=== PATIENT | female | born 1955 | race Caucasian/White ===

== ENCOUNTER 2023-04-12 10:29 | Day surgery (SDC) | payer BC ==
[2023-04-12] MEDS ORDERED: DENOSUMAB 60 MG/ML DISP.SYRIN SQ ONE (11:00)
[2023-04-12 12:54] VITALS: BP 132/78; PULSE 68; RESP 18; TEMP 97.8
== END 2023-04-12 12:00 | disposition home or self-care (01) ==
LOC: FINFUSION 10:29 → FM/S 10:32 → FINFUSION 12:00
PROVIDERS: ATTEND Internal Medicine Endocrinology, Diabetes & Metabolism
PROC: 3E013GC Introduction of Other Therapeutic Substance into Subcutaneous Tissue, Percutaneous Approach (ICD-10-PCS; principal; 2023-04-12)
DX: M81.0 Age-related osteoporosis without current pathological fracture (principal)
CPT/HCPCS: 96372; J0897

== ENCOUNTER 2023-04-24 04:11 | Day surgery (SDC) | payer BC ==
[2023-04-22 16:51] VITALS: BMI 26.9
[2023-04-24] MEDS ORDERED: ONDANSETRON 4 MG/2 ML VIAL IVPUSH PRN (11:56)
[2023-04-24] MEDS ORDERED: oxyCODONE HCL 5 MG TABLET PO PRN (11:56)
[2023-04-24] MEDS ORDERED: LACTATED RINGERS SOLUTION 1,000 ML IV SCH (12:00)
[2023-04-24] MEDS ORDERED: PROPOFOL 20 ML ONE (12:31)
[2023-04-24] MEDS ORDERED: MIDAZOLAM HCL 2 MG/2 ML SINGLE DOSE VIAL ONE (12:31)
[2023-04-24] MEDS ORDERED: ceFAZolin SODIUM 1 GM VIAL ONE ×2 (12:43)
[2023-04-24] MEDS ORDERED: ONDANSETRON 4 MG/2 ML VIAL ONE (12:43)
[2023-04-24 14:44] VITALS: RESP 18; TEMP 97.8
[2023-04-24 16:05] VITALS: BP 114/65; PULSE 90
== END 2023-04-24 15:40 | disposition home or self-care (01) ==
LOC: JASU-SURG 04:11
PROVIDERS: ATTEND Surgery
PROC: 07B20ZX Excision of Left Neck Lymphatic, Open Approach, Diagnostic (ICD-10-PCS; principal; 2023-04-24 12:55)
DX: C91.10 Chronic lymphocytic leukemia of B-cell type not having achieved remission (principal)
CPT/HCPCS: 88307-TC; 94760

== ENCOUNTER 2023-10-18 11:17 | Day surgery (SDC) | payer BC ==
[2023-10-18] MEDS: DENOSUMAB 60 MG/ML DISP.SYRIN SQ ONE (11:55)
[2023-10-18 12:59] VITALS: BP 122/77; PULSE 69; RESP 16; TEMP 98
== END 2023-10-18 13:00 | disposition home or self-care (01) ==
LOC: FINFUSION 11:17 → FINJECTION 11:17 → FM/S 11:20 → FINFUSION 13:00
PROVIDERS: ATTEND Internal Medicine Endocrinology, Diabetes & Metabolism
PROC: 3E013GC Introduction of Other Therapeutic Substance into Subcutaneous Tissue, Percutaneous Approach (ICD-10-PCS; principal; 2023-10-18)
DX: M81.0 Age-related osteoporosis without current pathological fracture (principal)
CPT/HCPCS: 96372; J0897

== ENCOUNTER 2024-04-17 10:51 | Day surgery (SDC) | payer BC ==
[2024-04-17] MEDS: DENOSUMAB 60 MG/ML DISP.SYRIN SQ ONE (11:11)
[2024-04-17 11:15] VITALS: BP 132/76; PULSE 66; RESP 19; TEMP 98.6
== END 2024-04-17 11:15 | disposition home or self-care (01) ==
LOC: FINJECTION 10:51 → FM/S 10:52 → FINJECTION 11:15
PROVIDERS: ATTEND Internal Medicine Endocrinology, Diabetes & Metabolism
PROC: 3E013GC Introduction of Other Therapeutic Substance into Subcutaneous Tissue, Percutaneous Approach (ICD-10-PCS; principal; 2024-04-17)
DX: M81.0 Age-related osteoporosis without current pathological fracture (principal)
CPT/HCPCS: 96372; J0897

== ENCOUNTER 2024-08-27 04:19 | Day surgery (SDC) | payer BC ==
[2024-08-18 14:03] VITALS: BMI 26.4
[2024-08-27 08:11] VITALS: RESP 16
[2024-08-27 09:24] VITALS: TEMP 98
[2024-08-27 10:44] VITALS: BP 137/65; PULSE 66
== END 2024-08-27 10:10 | disposition home or self-care (01) ==
LOC: JASU-ENDO 04:19
PROVIDERS: ATTEND Internal Medicine Gastroenterology
PROC: 0DJD8ZZ Inspection of Lower Intestinal Tract, Via Natural or Artificial Opening Endoscopic (ICD-10-PCS; principal; 2024-08-27 09:00)
DX: Z12.11 Encounter for screening for malignant neoplasm of colon (principal); K57.30 Diverticulosis of large intestine without perforation or abscess without bleeding; K59.89 Other specified functional intestinal disorders; Z86.0100 Personal history of colon polyps, unspecified; I10 Essential (primary) hypertension

== ENCOUNTER 2024-10-30 11:54 | Day surgery (SDC) | payer BC ==
[2024-10-30] MEDS: DENOSUMAB 60 MG/ML DISP.SYRIN SQ ONE (12:14)
[2024-10-30 13:36] VITALS: BP 137/87; PULSE 69; RESP 18; TEMP 98.2
== END 2024-10-30 13:36 | disposition home or self-care (01) ==
LOC: FINJECTION 11:54 → FM/S 11:55 → FINJECTION 13:36
PROVIDERS: ATTEND Internal Medicine Endocrinology, Diabetes & Metabolism
PROC: 3E013GC Introduction of Other Therapeutic Substance into Subcutaneous Tissue, Percutaneous Approach (ICD-10-PCS; principal; 2024-10-30)
DX: M81.0 Age-related osteoporosis without current pathological fracture (principal)
CPT/HCPCS: 96372; J0897